=== PATIENT | male | born 1930 | race Caucasian/White ===

== ENCOUNTER 2016-11-03 19:27 | Emergency (ER) | payer MEDICARE, OTHER ==
[~2016-11-03] VITALS: Ht 175.3 cm; Wt 56.8 kg
[~2016-11-03 19:27] MED LIST: AMOXICILLIN/CLA1 TA1 PO; ASPIRIN 81M81 MG/TA2 PO; CEPHALEXIN500 M1 PO; METAMUCIL1 PDR PO; METAMUCIL3.4 GM/DOS PO; MILK OF MA400 MG/5 M PO; MILK OF MA400 MG/52 PO; PLAVIX 75MG TAB75 MG PO; PRILOSEC 20MG20 MG PO; ZOCOR 20MG20 MG PO; ZOCOR40 MG PO
[2016-11-03 21:36] LABS: BASO # 0.1 (0.0-0.2); BASO % 0.9 % (0.0-2.0); EOS # 0.1 (0.0-0.7); EOS % 0.8 % (0-4.0); GRAN # 3.4 (1.4-6.5); GRAN % 51.4 % (42.2-75.2); HEMATOCRIT 41.7 % (42.0-52.0); HEMOGLOBIN 14.6 g/dl (13.5-18.0); LYMPH # 2.6 (1.2-3.4); LYMPH % 39.4 % (20.0-51.0); MEAN CELL VOLUME 90 fl (80.0-100.0); MEAN CORPUSCULAR HEMOGLOBIN 32 pg (27.0-31.0); MEAN CORPUSCULAR HGB CONC 35 g/dl (33.0-37.0); MEAN PLATELET VOLUME 8.3 fl (7.4-10.4); MONO # 0.5 (0.1-0.6); MONO % 7.3 % (1.7-9.3); PLATELET COUNT 215 K/mm3 (130-400); RED BLOOD COUNT 4.62 M/mm3 (4.20-5.60); REDCELL DISTRIBUTION WIDTH-CV 11.9 % (11.5-14.5); WHITE BLOOD COUNT 6.6 K/mm3 (4.8-10.8)
[2016-11-03 21:48] LABS: ANION GAP 9 mmol/L (7-16); BLOOD UREA NITROGEN 16 mg/dL (9-20); CALCIUM 9.6 mg/dL (8.4-10.2); CARBON DIOXIDE 31 mmol/L (22-30); CHLORIDE 90 mmol/L (98-107); CREATININE, serum 0.78 mg/dL (0.66-1.25); GLUCOSE 125 mg/dL (74-106); POTASSIUM 4.6 mmol/L (3.4-5.0); SODIUM 130 mmol/L (137-145)
[2016-11-03 21:52] LABS: C-REACTIVE PROTEIN < 0.5 mg/dL (0.0-0.9)
[2016-11-03 21:58] LABS: ERYTHROCYTE SEDIMENTATION RATE 1 mm/hr (0-30)
[2016-11-03 22:00] LABS: TROPONIN-I < 0.012 ng/mL (0.000-0.034)
[2016-11-03 22:35] VITALS: BP 102/68; PULSE 79; TEMP 97.4
== END 2016-11-03 22:35 | disposition home or self-care (01) ==
LOC: COL.ER 19:27
PROVIDERS: Emergency Medicine
DX: K59.00 Constipation, unspecified (principal)

== ENCOUNTER 2017-09-14 09:16 | Emergency (ER) | payer MEDICARE, OTHER ==
[~2017-09-14] VITALS: Ht 175.3 cm; Wt 50.9 kg
[~2017-09-14 09:16] MED LIST changes: +MIRALAX PA17 GM/Dose PO; +REMERON 15M15 MG/TA1 PO
[2017-09-14 09:26] VITALS: TEMP 97.9
[2017-09-14] MEDS ORDERED: VALIUM 5MG T5 MG/TAB PO (09:32)
[2017-09-14 12:15] VITALS: BP 100/69; PULSE 77
== END 2017-09-14 12:18 | disposition home or self-care (01) ==
LOC: COL.ER 09:16
DX: K59.00 Constipation, unspecified (principal); F41.9 Anxiety disorder, unspecified; Z79.82 Long term (current) use of aspirin

== ENCOUNTER 2017-11-29 17:07 | Emergency (ER) | payer MEDICARE, OTHER ==
[~2017-11-29 17:07] MED LIST changes: +VALIUM 5MG T5 MG/TAB PO
[2017-11-29 17:23] VITALS: TEMP 97.8
[2017-11-29 18:47] LABS: BASO % 0.6 % (0.0-2.0); EOS % 0.2 % (0-4.0); GRAN # 3.1 (1.4-6.5); GRAN % 62.7 % (42.2-75.2); HEMOGLOBIN 13.2 g/dl (13.5-18.0); LYMPH # 1.4 (1.2-3.4); LYMPH % 28.7 % (20.0-51.0); MEAN CELL VOLUME 89 fl (80.0-100.0); MEAN CORPUSCULAR HEMOGLOBIN 32 pg (27.0-31.0); MEAN CORPUSCULAR HGB CONC 36 g/dl (33.0-37.0); MEAN PLATELET VOLUME 9.3 fl (7.4-10.4); MONO # 0.4 (0.1-0.6); MONO % 7.6 % (1.7-9.3); PLATELET COUNT 150 K/mm3 (130-400); RED BLOOD COUNT 4.15 M/mm3 (4.20-5.60)
[2017-11-29 18:48] LABS: HEMATOCRIT 36.9 % (42.0-52.0)
[2017-11-29 19:46] LABS: BILIRUBIN,TOTAL 0.7 mg/dL (0.0-1.0); CALCIUM 8.7 mg/dL (8.4-10.2); CREATININE, serum 0.74 mg/dL (0.66-1.25); PHOSPHOROUS 3.8 mg/dL (2.5-4.5); POTASSIUM 4.2 mmol/L (3.4-5.0); TOTAL PROTEIN 6.8 gm/dL (6.4-8.2)
[2017-11-29 20:16] LABS: TSH w REFLEX 1.33 uIU/mL (0.465-4.680)
[2017-11-30 02:00] VITALS: BP 114/79; PULSE 74
== END 2017-11-30 02:01 ==
LOC: COL.ER 17:07
PROVIDERS: Emergency Medicine
DX: F32.9 Major depressive disorder, single episode, unspecified (principal); R45.851 Suicidal ideations; F41.9 Anxiety disorder, unspecified; F22 Delusional disorders; Z79.82 Long term (current) use of aspirin

== ENCOUNTER → 2017-12-22 | Outpatient (REF) ==
[2017-12-22 12:22] LABS: CALCIUM 8.3 mg/dL (8.4-10.2); CREATININE, serum 0.51 mg/dL (0.66-1.25); POTASSIUM 3.9 mmol/L (3.4-5.0)
[2017-12-22 12:25] LABS: BASO % 0.2 % (0.0-2.0); EOS % 0.2 % (0-4.0); GRAN # 3.7 (1.4-6.5); GRAN % 75.4 % (42.2-75.2); LYMPH # 0.6 (1.2-3.4); LYMPH % 12.1 % (20.0-51.0); MEAN CELL VOLUME 89 fl (80.0-100.0); MEAN CORPUSCULAR HGB CONC 35 g/dl (33.0-37.0); MEAN PLATELET VOLUME 8.8 fl (7.4-10.4); MONO # 0.6 (0.1-0.6); MONO % 11.7 % (1.7-9.3); PLATELET COUNT 238 K/mm3 (130-400); REDCELL DISTRIBUTION WIDTH-CV 11.9 % (11.5-14.5)
[2017-12-22 12:31] LABS: HEMATOCRIT 30.2 % (42.0-52.0); HEMOGLOBIN 10.7 g/dl (13.5-18.0); MEAN CORPUSCULAR HEMOGLOBIN 31 pg (27.0-31.0)
== END ==
LOC: ZCOL.LAB 12:06
PROVIDERS: Internal Medicine
DX: R41.82 Altered mental status, unspecified (principal)

== ENCOUNTER 2017-12-25 14:50 | Emergency (ER) | payer MEDICARE, OTHER ==
[2017-12-25 14:51] VITALS: TEMP 96.1
[2017-12-25 15:24] LABS: BASO % 0.3 % (0.0-2.0); EOS % 0.9 % (0-4.0); GRAN % 63.6 % (42.2-75.2); LYMPH # 0.7 (1.2-3.4); LYMPH % 22.3 % (20.0-51.0); MEAN CELL VOLUME 92 fl (80.0-100.0); MEAN CORPUSCULAR HGB CONC 34 g/dl (33.0-37.0); MEAN PLATELET VOLUME 8.5 fl (7.4-10.4); MONO # 0.4 (0.1-0.6); MONO % 12.3 % (1.7-9.3); PLATELET COUNT 232 K/mm3 (130-400); RED BLOOD COUNT 3.16 M/mm3 (4.20-5.60); REDCELL DISTRIBUTION WIDTH-CV 11.9 % (11.5-14.5)
[2017-12-25 15:25] LABS: HEMATOCRIT 28.9 % (42.0-52.0); HEMOGLOBIN 9.9 g/dl (13.5-18.0); MEAN CORPUSCULAR HEMOGLOBIN 31 pg (27.0-31.0)
[2017-12-25 15:37] LABS: INR 1.1 (0.8-3.0); PROTHROMBIN TIME 12.3 SECONDS (9.7-12.8)
[2017-12-25 15:43] LABS: ALANINE AMINOTRANSFERASE 57 U/L (21-72); ALBUMIN 2.6 gm/dL (3.5-5.0); ALKALINE PHOSPHATASE 75 U/L (50-136); ANION GAP 5 mmol/L (7-16); AST,SGOT 54 U/L (15-37); BILIRUBIN,TOTAL 0.5 mg/dL (0.0-1.0); BLOOD UREA NITROGEN 21 mg/dL (9-20); CALCIUM 7.8 mg/dL (8.4-10.2); CARBON DIOXIDE 32 mmol/L (22-30); CHLORIDE 93 mmol/L (98-107); CREATINE KINASE 75 U/L (55-170); CREATININE, serum 0.74 mg/dL (0.66-1.25); GLUCOSE 80 mg/dL (74-106); LIPASE 115 U/L (23-300); POTASSIUM 4.5 mmol/L (3.4-5.0); SODIUM 131 mmol/L (137-145); TOTAL PROTEIN 5.1 gm/dL (6.4-8.2)
[2017-12-25 16:00] LABS: TROPONIN-I < 0.012 ng/mL (0.000-0.034)
[2017-12-25] MEDS ORDERED: ASPIRIN 81M81 MG/TA2 PO (17:06)
[2017-12-25] MEDS ORDERED: STOOL SOFTENER100 M2 PO (17:06)
[2017-12-25] MEDS ORDERED: CELEXA 20MG20 MG/TAB PO (17:06)
[2017-12-25] MEDS ORDERED: IPRATROPIUM BROM3 M1 IH (17:07)
[2017-12-25] MEDS ORDERED: REMERON SOLTAB30 MG PO (17:07)
[2017-12-25] MEDS ORDERED: MIRALAX PA17 GM/Dose PO (17:08)
[2017-12-25] MEDS ORDERED: RISPERDAL M-TAB0.25 PO (17:10)
[2017-12-25] MEDS ORDERED: FLOMAX 0.40.4 MG/CAP PO (17:10)
[2017-12-25 17:55] VITALS: BP 109/63; PULSE 90
== END 2017-12-25 17:57 | disposition home or self-care (01) ==
LOC: COL.ER 14:50
PROVIDERS: Emergency Medicine
DX: I10 Essential (primary) hypertension (principal); R55 Syncope and collapse; F32.9 Major depressive disorder, single episode, unspecified; F60.9 Personality disorder, unspecified; Z86.73 Personal history of transient ischemic attack (TIA), and cerebral infarction without residual deficits; Z87.11 Personal history of peptic ulcer disease; Z90.89 Acquired absence of other organs
CPT/HCPCS: J7030

== ENCOUNTER → 2017-12-31 | Outpatient (REF) ==
[~2017-12-31] MED LIST changes: +CELEXA 20MG20 MG/TAB PO; +FLOMAX 0.40.4 MG/CAP PO; +IPRATROPIUM BROM3 M1 IH; +REMERON SOLTAB30 MG PO; +RISPERDAL M-TAB0.25 PO; +STOOL SOFTENER100 M2 PO
== END ==
LOC: ZCOL.LAB 08:19
DX: I95.9 Hypotension, unspecified (principal)

== ENCOUNTER → 2018-01-21 | Outpatient (CLI) | payer MEDICARE, OTHER ==
[2018-01-21 15:29] LABS: BASO % 0.5 % (0.0-2.0); EOS # 0.1 (0.0-0.7); EOS % 0.6 % (0-4.0); GRAN % 65.2 % (42.2-75.2); HEMOGLOBIN 11.9 g/dl (13.5-18.0); LYMPH # 2.1 (1.2-3.4); LYMPH % 26.6 % (20.0-51.0); MEAN CELL VOLUME 93 fl (80.0-100.0); MEAN CORPUSCULAR HEMOGLOBIN 31 pg (27.0-31.0); MEAN CORPUSCULAR HGB CONC 34 g/dl (33.0-37.0); MEAN PLATELET VOLUME 8.6 fl (7.4-10.4); MONO # 0.5 (0.1-0.6); MONO % 6.7 % (1.7-9.3); PLATELET COUNT 295 K/mm3 (130-400); RED BLOOD COUNT 3.79 M/mm3 (4.20-5.60); REDCELL DISTRIBUTION WIDTH-CV 13.5 % (11.5-14.5)
[2018-01-21 15:30] LABS: HEMATOCRIT 35.4 % (42.0-52.0)
[2018-01-21 15:42] LABS: ALBUMIN 3.1 gm/dL (3.5-5.0); BILIRUBIN,TOTAL 0.3 mg/dL (0.0-1.0); CALCIUM 8.4 mg/dL (8.4-10.2); CREATININE, serum 0.8 mg/dL (0.66-1.25); POTASSIUM 4.4 mmol/L (3.4-5.0); TOTAL PROTEIN 6.1 gm/dL (6.4-8.2)
[2018-01-21 16:06] LABS: ERYTHROCYTE SEDIMENTATION RATE 11 mm/hr (0-30)
== END ==
LOC: ZCOL.LAB 15:19
PROVIDERS: Internal Medicine
DX: R62.7 Adult failure to thrive (principal)

== ENCOUNTER → 2020-02-26 | Outpatient (CLI) | payer MEDICARE, OTHER ==
[2020-02-26 16:25] LABS: BASO % 0.6 % (0.0-2.0); EOS # 0.2 (0.0-0.7); EOS % 2.4 % (0-4.0); GRAN # 4.7 (1.4-6.5); GRAN % 71.9 % (42.2-75.2); HEMOGLOBIN 10.7 g/dl (13.5-18.0); LYMPH % 15.5 % (20.0-51.0); MEAN CELL VOLUME 86 fl (80.0-100.0); MEAN CORPUSCULAR HEMOGLOBIN 26 pg (27.0-31.0); MEAN CORPUSCULAR HGB CONC 30 g/dl (33.0-37.0); MEAN PLATELET VOLUME 9.8 fl (7.4-10.4); MONO # 0.6 (0.1-0.6); MONO % 9.3 % (1.7-9.3); PLATELET COUNT 271 K/mm3 (130-400); RED BLOOD COUNT 4.15 M/mm3 (4.20-5.60); REDCELL DISTRIBUTION WIDTH-CV 17.3 % (11.5-14.5)
[2020-02-26 17:13] LABS: HEMATOCRIT 35.7 % (42.0-52.0)
== END ==
LOC: EDSTATUS 10:29 → ZCOL.LAB 15:55
PROVIDERS: Internal Medicine
DX: E87.1 Hypo-osmolality and hyponatremia (principal); R48.9 Unspecified symbolic dysfunctions

== ENCOUNTER → 2020-03-01 | Outpatient (CLI) | payer MEDICARE, OTHER ==
[2020-03-01 13:30] LABS: ALBUMIN 3.6 gm/dL (3.5-5.0); BILIRUBIN,TOTAL 0.7 mg/dL (0.0-1.0); CALCIUM 8.9 mg/dL (8.4-10.2); CREATININE, serum 1.1 (0.66-1.25); POTASSIUM 4.6 mmol/L (3.4-5.0); TOTAL PROTEIN 6.9 gm/dL (6.4-8.2)
[2020-03-01 13:59] LABS: THYROID STIMULATING HORMONE 1.17 uIU/mL (0.465-4.680)
== END ==
LOC: ZCOL.LAB 13:15
PROVIDERS: Internal Medicine
DX: E87.1 Hypo-osmolality and hyponatremia (principal)